=== PATIENT | female | born 1980 | race Two or more races ===

== ENCOUNTER 2018-08-28 09:08 | Outpatient (CLI) | payer OTHER | END 2018-08-28 09:15 | disposition home or self-care (01) | LOC: SONOGRAMA 09:08 → MAMO-SONO 08-29 13:45 | DX: N84.0 Polyp of corpus uteri (principal) ==

== ENCOUNTER → 2018-10-03 | Day surgery (SDC) | payer OTHER ==
[~2018-10-03] MED LIST: IRON325 MG PO
== END | disposition home or self-care (01) ==
LOC: ADM 09-27 08:15 → CIR.AMB 06:40
DX: N84.0 Polyp of corpus uteri (principal)

== ENCOUNTER 2020-05-26 19:06 | Emergency (ER) | payer OTHER ==
[~2020-05-26] VITALS: Ht 157.5 cm; Wt 54.4 kg
[2020-05-26] MEDS ORDERED: HYDROXYZIN10 MG/5 ML PO (19:17)
[2020-05-26] MEDS ORDERED: SERTRALINE HCL25 MG PO (19:17)
== END 2020-05-26 20:50 | disposition home or self-care (01) ==
LOC: ER 19:06
DX: G47.09 Other insomnia (principal); F06.4 Anxiety disorder due to known physiological condition

== ENCOUNTER 2021-03-12 00:44 | Emergency (ER) | payer OTHER ==
[~2021-03-12] VITALS: Ht 157.5 cm; Wt 55.3 kg
[~2021-03-12 00:44] MED LIST changes: +HYDROXYZIN10 MG/5 ML PO; +SERTRALINE HCL25 MG PO
[2021-03-12] MEDS ORDERED: CLONAZEPAM1 M1 PO (01:05)
[2021-03-12] MEDS ORDERED: MAGNESIUM200 MG PO (01:05)
== END 2021-03-12 01:31 | disposition home or self-care (01) ==
LOC: ER 00:44
DX: R53.81 Other malaise (principal); F13.939 Sedative, hypnotic or anxiolytic use, unspecified with withdrawal, unspecified

== ENCOUNTER 2022-04-02 06:53 | Emergency (ER) | payer OTHER ==
[~2022-04-02] VITALS: Ht 157.5 cm; Wt 59.0 kg
[~2022-04-02 06:53] MED LIST changes: +CLONAZEPAM1 M1 PO; +MAGNESIUM200 MG PO
[2022-04-02] MEDS ORDERED: FLUVOXAMINE MAL25 MG PO (07:39)
== END 2022-04-02 13:14 | disposition home or self-care (01) ==
LOC: ER 06:53
DX: N93.9 Abnormal uterine and vaginal bleeding, unspecified (principal); F41.9 Anxiety disorder, unspecified